=== PATIENT | female | born 1995 | race African-American/Black ===

== ENCOUNTER 2022-06-05 14:39 | Inpatient (IN) | payer OTHER ==
[~2022-06-05] VITALS: Ht 175.3 cm; Wt 65.0 kg
[2022-06-05] MEDS ORDERED: SODIUM CHLORIDE 0.9% 1000ML BAG (SEPSIS BOLUS) IV ONE (16:00)
[2022-06-05 16:13] LABS: BG BASE EXCESS -8.6 mmol/L (-2.0-2.0); BG CARBOXYHEMOGLOBIN 2.1 % (0.5-1.5); BG DEOXYHEMOGLOBIN 2.3 % (0.0-5.0); BG FRACTION INSPIRED OXYGEN 21; BG HCO3 ACT 15.7 mmol/L (22.0-26.0); BG METHEMOGLOBIN 0.1 % (0.0-1.5); BG OXYGEN SATURATION 97.6 % (92.0-98.5); BG OXYHEMOGLOBIN 95.5 % (94.0-97.0); BG PCO2 29.2 mmHg (35.0-45.0); BG PH 7.347 (7.350-7.450); BG PO2 100.3 mmHg (75.0-100.0); BG SAMPLE SITE RIGHT BRACHIAL; BG TOTAL HEMOGLOBIN 13.7 g/dL (12.0-18.0); BG VENT MODE ROOM AIR
[2022-06-05 16:15] LABS: BASOPHILS % 0.3 % (0.0-2.0); EOSINOPHILS % 0.1 % (0.0-5.0); HEMATOCRIT. 40.7 % (36.0-48.0); HEMOGLOBIN. 13.3 g/dL (12.0-16.0); LYMPHOCYTES % 11.3 % (20.0-50.0); MEAN CORPUSCULAR HEMOGLOBIN 27.4 pg (28.0-32.0); MEAN CORPUSCULAR VOLUME 83.5 fL (81.0-99.0); MEAN PLATELET VOLUME 9.2 fl (7.4-10.4); MONOCYTES % 5.5 % (2.0-8.0); NEUTROPHILS % 82.8 % (40.0-76.0); PLATELET 207 x1000/uL (130-400); RED BLOOD CELL COUNT 4.87 mill/uL (4.2-5.4); RED CELL DISTRIBUTION WIDTH 13.8 % (11.6-14.6)
[2022-06-05] MEDS ORDERED: ACETAMINOPHEN 325MG TABLET PO ONE (16:15)
[2022-06-05 16:20] LABS: CHLORIDE 94 mEq/L (98-107)
[2022-06-05 16:30] LABS: ETHANOL BLOOD < 10 mg/dL; HCG SCREEN NEGATIVE
[2022-06-05] MEDS ORDERED: MORPHINE SULFATE 4 MG/ML CPJ (NOT FOR IM USE) IV NR (17:00)
[2022-06-05] MEDS ORDERED: INSULIN REGULAR 100U/100ML PMX 100 ML IV ONE (18:45)
[2022-06-05] MEDS ORDERED: INSULIN REGULAR (DRIP) 100 UNITS in SODIUM CHLORIDE 0.9% 100 ML IV ONE (18:45)
[2022-06-05 18:48] LABS: PHOSPHORUS 3.2 mg/dL (2.5-4.9)
[2022-06-05 20:36] LABS: CHLORIDE 102 mEq/L (98-107)
[2022-06-05 21:47] VITALS: BP 141/101
[2022-06-05 21:48] LABS: CLARITY URINE CLEAR (CLEAR); COLOR URINE YELLOW (YELLOW); KETONES URINE 4+ (NEGATIVE); LEUKOCYTE ESTERASE URINE NEGATIVE (NEGATIVE); NITRITE URINE NEGATIVE (NEGATIVE); OCCULT BLOOD URINE 3+ (NEGATIVE); PROTEIN URINE NEGATIVE (NEGATIVE); SPECIFIC GRAVITY URINE 1.022 (1.005-1.030); UROBILINOGEN URINE 0.2 E.U./dL (0.2-1.0)
[2022-06-05 22:00] VITALS: BP_SYST 132; BP_SYST 146; BP_DIAS 100; BP_DIAS 88
[2022-06-05 22:17] LABS: *AMPHETAMINES SCREEN URINE NEGATIVE (NEGATIVE); *BARBITURATES SCREEN URINE NEGATIVE (NEGATIVE); *BENZODIAZEPINES SCREEN URINE NEGATIVE (NEGATIVE); *COCAINE SCREEN URINE NEGATIVE (NEGATIVE); METHADONE URINE SCREEN NEGATIVE (NEGATIVE); PHENCYCLIDINE URINE SCREEN NEGATIVE (NEGATIVE)
[2022-06-05 22:18] LABS: CANNABINOID URINE SCREEN PRESUMTIVE POSITIVE (NEGATIVE); OPIATES URINE SCREEN PRESUMTIVE POSITIVE (NEGATIVE)
[2022-06-05 22:30] VITALS: BP 138/91
[2022-06-05 23:00] VITALS: BP 126/86
[2022-06-05 23:30] VITALS: BP 110/77
[2022-06-06] VITALS (18 sets, daily range): BP systolic 110–154; BP diastolic 63–97
[2022-06-06] MEDS ORDERED: ONDANSETRON HCL 4MG/2ML INJ IV PRN
[2022-06-06] MEDS ORDERED: DEXTROSE 50% WATER 50ML SYRINGE IV PRN
[2022-06-06] MEDS ORDERED: SODIUM CHLORIDE 0.9% 1,000 ML IV SCH
[2022-06-06] MEDS ORDERED: HYDROCODONE/ACETAMINOPHEN 5/325MG TABLET PO PRN
[2022-06-06] MEDS ORDERED: INSULIN GLARGINE 100 UNITS/ML SUBCUT SCH
[2022-06-06 01:26] LABS: CHLORIDE 104 mEq/L (98-107)
[2022-06-06 01:28] LABS: CHLORIDE 102 mEq/L (98-107)
[2022-06-06 02:19] LABS: CHLORIDE 107 mEq/L (98-107)
[2022-06-06] MEDS: BLOOD SUGAR DIAGNOSTIC STRIP TEST SCH ×5 (07:43→21:21)
[2022-06-06] MEDS: INSULIN LISPRO 100 UNITS/ML SUBCUT SCH ×8 (08:19→21:36)
[2022-06-06] MEDS: ENOXAPARIN 40MG/0.4ML SYR SUBCUT SCH (09:00)
[2022-06-06] MEDS: INSULIN GLARGINE 100 UNITS/ML SUBCUT SCH ×2 (10:00→21:35)
[2022-06-06] MEDS ORDERED: MAGNESIUM 2 G PREMIX 50 ML IV NR (10:30)
[2022-06-06 10:36] LABS: BASOPHILS % 0.3 % (0.0-2.0); EOSINOPHILS % 0.7 % (0.0-5.0); HEMATOCRIT. 37.5 % (36.0-48.0); HEMOGLOBIN. 12.4 g/dL (12.0-16.0); LYMPHOCYTES % 18.5 % (20.0-50.0); MEAN CORPUSCULAR HEMOGLOBIN 27.2 pg (28.0-32.0); MEAN CORPUSCULAR VOLUME 82.3 fL (81.0-99.0); MEAN PLATELET VOLUME 9.1 fl (7.4-10.4); MONOCYTES % 8.5 % (2.0-8.0); PLATELET 230 x1000/uL (130-400); RED BLOOD CELL COUNT 4.56 mill/uL (4.2-5.4); RED CELL DISTRIBUTION WIDTH 13.7 % (11.6-14.6)
[2022-06-06 10:45] LABS: CHLORIDE 106 mEq/L (98-107)
[2022-06-06 10:50] LABS: PHOSPHORUS 1.8 mg/dL (2.5-4.9)
[2022-06-06] MEDS ORDERED: NALOXONE HCL 0.4MG/ML VIAL IV PRN (15:30)
[2022-06-06] MEDS: HYDROCODONE/ACETAMINOPHEN 10/325MG TABLET PO PRN ×2 (15:38→21:16)
[2022-06-07] VITALS (7 sets, daily range): BP systolic 114–138; BP diastolic 67–96
[2022-06-07] MEDS: HYDROCODONE/ACETAMINOPHEN 10/325MG TABLET PO PRN ×2 (03:12→08:58)
[2022-06-07 05:59] LABS: BASOPHILS % 0.2 % (0.0-2.0); EOSINOPHILS % 1.3 % (0.0-5.0); HEMATOCRIT. 35.6 % (36.0-48.0); HEMOGLOBIN. 11.9 g/dL (12.0-16.0); LYMPHOCYTES % 14.3 % (20.0-50.0); MEAN CORPUSCULAR HEMOGLOBIN 27.4 pg (28.0-32.0); MEAN CORPUSCULAR VOLUME 81.4 fL (81.0-99.0); MEAN PLATELET VOLUME 8.8 fl (7.4-10.4); MONOCYTES % 10.7 % (2.0-8.0); NEUTROPHILS % 73.5 % (40.0-76.0); PLATELET 213 x1000/uL (130-400); RED BLOOD CELL COUNT 4.37 mill/uL (4.2-5.4); RED CELL DISTRIBUTION WIDTH 13.4 % (11.6-14.6)
[2022-06-07 06:18] LABS: CHLORIDE 103 mEq/L (98-107)
[2022-06-07 06:25] LABS: HDL CHOLESTEROL 34 mg/dL (40-59); LDL CHOLESTEROL 43 mg/dL (5-100)
[2022-06-07] MEDS ORDERED: INSLIS SUBCUT (06:57)
[2022-06-07] MEDS ORDERED: LANTUSUD SUBCUT (06:57)
[2022-06-07] MEDS ORDERED: POTASSIUM CHLORIDE 20MEQ TABLET SR PO NR (07:00)
[2022-06-07] MEDS: BLOOD SUGAR DIAGNOSTIC STRIP TEST SCH (07:20)
[2022-06-07] MEDS: INSULIN GLARGINE 100 UNITS/ML SUBCUT SCH (08:56)
[2022-06-07] MEDS: INSULIN LISPRO 100 UNITS/ML SUBCUT SCH ×2 (08:56)
[2022-06-07] MEDS: ENOXAPARIN 40MG/0.4ML SYR SUBCUT SCH (08:57)
[2022-06-07] MEDS ORDERED: DOXY100C5 MT (09:22)
[2022-06-07] MEDS ORDERED: HYDR-4001 MT (09:22)
[2022-06-07] MEDS ORDERED: PRAM177L22 TP (09:22)
== END 2022-06-07 17:14 | disposition home or self-care (01) | DRG 420 ==
LOC: ER 14:39 → EDBEDREQSVC 18:51 → EDBEDREQ 18:51 → EDBEDREQTM 18:51 → CVICU 19:21 → EDBEDREQTM 19:34 → EDBEDREQ 19:34 → 6WST 06-07 06:20
PROVIDERS: ADMIT Internal Medicine; ATTEND Internal Medicine
DX: E11.10 Type 2 diabetes mellitus with ketoacidosis without coma (principal); D72.829 Elevated white blood cell count, unspecified; E83.42 Hypomagnesemia; E11.65 Type 2 diabetes mellitus with hyperglycemia; E86.9 Volume depletion, unspecified; Z20.822 Contact with and (suspected) exposure to COVID-19; F12.90 Cannabis use, unspecified, uncomplicated; L73.2 Hidradenitis suppurativa; R00.0 Tachycardia, unspecified; Z91.14 Patient's other noncompliance with medication regimen; Z79.4 Long term (current) use of insulin
CPT/HCPCS: 36415; 36600; 71045; 80048; 80053; 80061; 80305; 80320; 81003; 82375; 82805; 82962; 83036; 83605; 83735; 84100; 84145; 84703; 85025; 87426; 93005; 99291; C9803; J1650; J1815; J2270; J2405; J3475; J7030; J7050; G0480